=== PATIENT | female | born 1950 | race Caucasian/White ===

== ENCOUNTER 2017-08-14 18:38 | Emergency (ER) | payer MEDICARE, BC ==
[~2017-08-14] VITALS: Ht 172.7 cm; Wt 77.8 kg
[~2017-08-14 18:38] MED LIST: ASPI-1264 PO; ATE25T PO; BENA5TAB2 PO; CHOL500050 PO; CITA-278 PO; CLOP75TA35 PO; FENO160T13 PO; GABA-530 PO; INSU100V9 SQ; MAGN500C16 PO; NITR0.4T SL; OMEP20CA10 PO; SIMV20TA5 PO; VIT1CAPS4 PO
[2017-08-14 19:19] LABS: BASOPHILS % (AUTO) 0.1 % (0-1); EOSINOPHILS % (AUTO) 0 % (0-6); HEMATOCRIT 50.8 % (35.0-45.0); LYMPHOCYTES # (AUTO) 0.8 X10'3 (1.1-4.8); LYMPHOCYTES % (AUTO) 13.8 % (21-51); MEAN CORPUSCULAR HEMOGLOBIN 28.5 PG (27.0-31.0); MEAN CORPUSCULAR HGB CONC 33.5 % (33.0-36.5); MEAN CORPUSCULAR VOLUME 84.8 FL (78-98); MEAN PLATELET VOLUME 7.7 FL (7.4-10.4); MONOCYTES # (AUTO) 0.5 X10'3 (0-0.9); MONOCYTES % (AUTO) 9.5 % (2-12); NEUTROPHILS # (AUTO) 4.4 X10'3 (1.8-7.7); NEUTROPHILS % (AUTO) 76.6 % (42-75); PLATELET COUNT 305 X10'3 (140-440); RED BLOOD COUNT 5.98 X10'6 (4.20-5.60); RED CELL DISTRIBUTION WIDTH 14.8 % (11.5-14.5); WHITE BLOOD COUNT 5.7 X10'3 (4.5-11.0)
[2017-08-14 19:21] LABS: COLOR,URINE Yellow (Yellow); GLUCOSE, URINE Negative (Neg); KETONES,URINE Negative (Neg); LEUKOCYTE ESTERASE ,URINE Moderate (Neg); NITRITES, URINE Positive (Neg); OCCULT BLOOD,URINE Negative (Neg); PROTEIN,URINE 30 mg/dl (Neg)
[2017-08-14 19:30] LABS: UA COLLECTION TYPE CLN CATCH MIDSTREAM
[2017-08-14 19:31] LABS: PARTIAL THROMBOPLASTIN TIME 26 SECONDS (22-32)
[2017-08-14 19:31] LABS: BACTERIA,URINE 4+ /HPF (Neg); CLARITY,URINE SLIGHTLY CLOUDY (Clear); RBC,URINE 0-2 /HPF (0-2); RENAL CELLS, URINE FEW /HPF; SQUAMOUS EPITHELIAL CELL,UR FEW /LPF (FEW); WBC,URINE 20-30 /HPF (0-4)
[2017-08-14 19:35] LABS: ALANINE AMINOTRANSFERASE 29 U/L (12-78); ALBUMIN 3.9 G/DL (3.4-5.0); ALBUMIN/GLOBULIN RATIO 1.1 (1.1-1.5); ALKALINE PHOSPHATASE 67 IU/L (46-116); ANION GAP 13 (8-16); ASPARTATE AMINO TRANSFERASE 12 U/L (10-37); BLOOD UREA NITROGEN 30 MG/DL (7-18); BUN/CREATININE RATIO 17.1 (6.6-38.0); CALCIUM 9.6 MG/DL (8.5-10.1); CHLORIDE 102 MMOL/L (99-107); CREATININE 1.75 MG/DL (0.40-0.90); GLUCOSE 220 MG/DL (70-104); POTASSIUM 4.4 MMOL/L (3.5-5.1); SODIUM 141 MMOL/L (135-145); TOTAL CARBON DIOXIDE 25.8 MMOL/L (24-32); TOTAL PROTEIN 7.4 G/DL (6.4-8.2); eGFR 29 ML/MIN
[2017-08-14 19:40] LABS: MAGNESIUM 1.7 MG/DL (1.5-2.4)
[2017-08-14] MEDS ORDERED: normal saline 1000ml 1,000 ML IV ONE (19:54)
[2017-08-14] MEDS ORDERED: famotidine/PF 10 mg/ml inj IV ONE (19:55)
[2017-08-14] MEDS ORDERED: morphine 4 MG/ML inj SYRINge IV ONE (19:55)
[2017-08-14] MEDS ORDERED: normal saline 1000ML IV soln IVB ONE ×2 (19:55→20:45)
[2017-08-14] MEDS ORDERED: ondansetron/PF 4mg/2ml inj IV ONE (19:55)
[2017-08-14 20:12] LABS: LIPASE 113 U/L (73-393)
[2017-08-14] MEDS: metoprolol tartrate 1mg/ml inj IV SCH ×4 (20:15→20:45)
[2017-08-14] MEDS ORDERED: ONDA4TAB6 PO (22:29)
[2017-08-14] MEDS ORDERED: CEPH250T PO (22:29)
[2017-08-14] MEDS ORDERED: CefTRIAXone 2gm/D5W 50ml 50 ML IV ONE (22:30)
[2017-08-14] MEDS ORDERED: mag hydrox/Alum hydrox/simeth 30ml oral suspension PO ONE (22:35)
[2017-08-14] MEDS ORDERED: LIDOcaine Viscous 15ml cup PO ONE (22:35)
[2017-08-14 23:12] VITALS: BP 113/65
== END 2017-08-14 23:14 | disposition home or self-care (01) ==
LOC: ER 18:39
DX: N39.0 Urinary tract infection, site not specified (principal); N28.9 Disorder of kidney and ureter, unspecified; E11.9 Type 2 diabetes mellitus without complications; E86.0 Dehydration; I49.9 Cardiac arrhythmia, unspecified; E78.00 Pure hypercholesterolemia, unspecified; I25.10 Atherosclerotic heart disease of native coronary artery without angina pectoris; I10 Essential (primary) hypertension; K21.9 Gastro-esophageal reflux disease without esophagitis; G89.29 Other chronic pain; Z87.442 Personal history of urinary calculi; Z95.1 Presence of aortocoronary bypass graft; Z88.8 Allergy status to other drugs, medicaments and biological substances; Z79.4 Long term (current) use of insulin; Z79.82 Long term (current) use of aspirin; Z79.899 Other long term (current) drug therapy
CPT/HCPCS: 36415; 71045; 80053; 81001; 83690; 83735; 83880; 84484; 85025; 85610; 85730; 87077; 87088; 87186; 93005; 96361; 96365; 96375; 99285; J0696; J2270; J2405; J3490; J7030

== ENCOUNTER 2020-04-18 05:55 | Day surgery (SDC) | payer MEDICARE, BC ==
[2020-04-17 11:49] LABS: BASOPHILS % (AUTO) 0.6 % (0-1); EOSINOPHILS % (AUTO) 0 % (0-6); HEMATOCRIT 44.4 % (35.0-45.0); HEMOGLOBIN 14.6 g/dl (12.0-16.0); LYMPHOCYTES # (AUTO) 1.5 X10'3 (1.1-4.8); LYMPHOCYTES % (AUTO) 21.4 % (21-51); MEAN CORPUSCULAR HGB CONC 32.8 g/dL (33.0-36.5); MEAN CORPUSCULAR VOLUME 85.2 FL (78-98); MEAN PLATELET VOLUME 7.6 FL (7.4-10.4); MONOCYTES # (AUTO) 0.7 X10'3 (0-0.9); MONOCYTES % (AUTO) 9.6 % (2-12); NEUTROPHILS # (AUTO) 4.6 X10'3 (1.8-7.7); NEUTROPHILS % (AUTO) 68.4 % (42-75); PLATELET COUNT 316 X10'3 (140-440); RED BLOOD COUNT 5.21 X10'6 (4.20-5.60); RED CELL DISTRIBUTION WIDTH 15.5 % (11.5-14.5); WHITE BLOOD COUNT 6.8 X10'3 (4.5-11.0)
[2020-04-17 11:57] LABS: ALBUMIN 3.9 G/DL (3.4-5.0); ANION GAP 7 (8-16); BLOOD UREA NITROGEN 34 MG/DL (7-18); BUN/CREATININE RATIO 21.5 (6.6-38.0); CALCIUM 9.3 MG/DL (8.5-10.1); CHLORIDE 108 MMOL/L (99-107); CREATININE 1.58 MG/DL (0.40-0.90); GLUCOSE 85 MG/DL (70-104); POTASSIUM 4.5 MMOL/L (3.5-5.1); SODIUM 145 MMOL/L (135-145); TOTAL CARBON DIOXIDE 30.2 MMOL/L (24-32); eGFR 32 ML/MIN
[2020-04-17 12:02] LABS: PARTIAL THROMBOPLASTIN TIME 28 SECONDS (22-32)
[2020-04-18] VITALS (19 sets, daily range): BP systolic 119–173; BP diastolic 62–105
[~2020-04-18] VITALS: Ht 172.7 cm; Wt 77.1 kg
[~2020-04-18 05:55] MED LIST changes: +ASPI-1071 PO; -ASPI-1264 PO; +ATOR20TA66 PO; -BENA5TAB2 PO; -CITA-278 PO; +CITA20TA28 PO; +CLOP75TA34 PO; -CLOP75TA35 PO; +DEXL60CA3 PO; +DULA1.5P SQ; +FLAX100015 PO; -GABA-530 PO; +GLIP10TA11 PO; +HYDR12.55 PO; +INSU100I29 SQ; -INSU100V9 SQ; +LACT1CAP55 PO; +LISI10TA4 PO; -NITR0.4T SL; +NITR0.4T51 SL; -OMEP20CA10 PO; -SIMV20TA5 PO; -VIT1CAPS4 PO
[2020-04-18] MEDS ORDERED: LORazepam 0.5 MG tablet PO PRN (06:15)
[2020-04-18] MEDS ORDERED: diphenhydrAMINE 25mg capsule PO PRN (06:15)
[2020-04-18] MEDS ORDERED: ATOR10TA70 PO (06:53)
[2020-04-18] MEDS ORDERED: VITA15LO2 PO (06:53)
[2020-04-18] MEDS ORDERED: NITR0.4T51 SL (06:53)
[2020-04-18] MEDS ORDERED: ASPI-1265 PO (06:53)
--- NOTE | 2020-04-18 07:14 | NUR ---
pt states she took a Nitro sublingual early this a.m. or chest pain. denies chest pain now. states has subsided Addendum: 04/18/20 at 0716 by Arin Lizama RN Amended: Links added.
[2020-04-18] MEDS ORDERED: sodium bicarbonate (8.4%) inj. 150 ML in dextrose 5%-water 1,000 ML IV ONE (07:15)
[2020-04-18] MEDS: normal saline 1,000 ML IV SCH ×2 (07:26→16:15)
[2020-04-18] MEDS: acetylcysteine 200 MG/ml 4ml vial PO PRN ×3 (07:29→18:28)
[2020-04-18] MEDS ORDERED: heparin 1,000unit/ml 10ml vial 10 ML ONE (07:31)
[2020-04-18] MEDS ORDERED: LIDOcaine 1% (10mg/ml)w/preservative injection 20ml MDV ONE ×2 (07:31→13:39)
[2020-04-18] MEDS ORDERED: fentaNYL/PF 50MCG/1 ML 2ML syringe ONE (07:31)
[2020-04-18] MEDS ORDERED: nitroGLYCERIN-Tridil 50MG/D5W 250 ML IV ONE ×2 (07:31→09:10)
[2020-04-18] MEDS ORDERED: iohexol 350 MG/ML 50ML vial IV ONE ×2 (07:31→08:19)
[2020-04-18] MEDS ORDERED: iohexol 350MG/ML 100ml bottle IV ONE ×2 (07:31→08:38)
[2020-04-18] MEDS ORDERED: midazolam 2 mg/2 ml injection ONE ×2 (07:31→09:00)
[2020-04-18] MEDS ORDERED: nitroGLYCERIN 0.4mg SUBLingual tab SL ONE (08:00)
[2020-04-18] MEDS ORDERED: diltiazem 5mg/ml 5ml inj. IV ONE (08:34)
[2020-04-18] MEDS ORDERED: heparin 25,000 UNIT/250ml bag 250 ML IV ONE (08:38)
[2020-04-18] MEDS ORDERED: iohexol 350 MG/1 ML 200ml bottle ONE (08:56)
[2020-04-18] MEDS ORDERED: heparin 1,000 UNITS/NS 500ml 500 ML ONE (09:11)
[2020-04-18] MEDS ORDERED: HYDROmorphone 1 mg/ml syringe ONE (09:13)
[2020-04-18] MEDS ORDERED: clopidogrel 300mg tablet ONE (10:05)
[2020-04-18] MEDS ORDERED: aspirin 81mg tab.chew PO SCH (10:39)
[2020-04-18] MEDS ORDERED: acetaminophen 325mg tablet PO PRN ×2 (10:40)
[2020-04-18] MEDS ORDERED: cyclobenzaprine 10mg tablet PO PRN (10:40)
[2020-04-18] MEDS ORDERED: OXAZEpam 15mg capsule PO PRN (10:40)
[2020-04-18] MEDS ORDERED: HYDROcodone/acetaminophen 10/325mg tab PO PRN ×2 (10:40)
[2020-04-18] MEDS ORDERED: proCHLORperazine 10 MG/2 ml inj IV PRN (10:40)
[2020-04-18] MEDS ORDERED: magnesium hydroxide 30ml (MOM) UD suspension PO PRN (10:40)
[2020-04-18] MEDS: sodium bicarbonate (8.4%) inj. 150 MEQ in dextrose 5%-water 1,000 ML IV SCH ×2 (10:45→18:25)
[2020-04-18] MEDS ORDERED: LIDOcaine 1% (10mg/ml) 2ml vial ONE (13:57)
--- NOTE | 2020-04-18 14:20 | NUR ---
Received report from Kendra REID. Bernard REID from sugar laboratory assistant in to pull sheath and place angioseal. Patient tolerated well. Site CDI, no bleeding no hematoma following sheath removal.
--- NOTE | 2020-04-18 14:21 | NUR ---
LORENZO REID FROM LICENSED MORTICIAN HERE TO PULL SHEATH AND PLACE ANGIOSEAL. PT AND REPORT GIVEN TO SUBHA REID. PT INFORMED.
[2020-04-18] MEDS ORDERED: hydrALAZINE 20mg/ml inj. IV ONE ×2 (14:50→14:55)
--- NOTE | 2020-04-18 16:10 | NUR ---
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 Stat EKG performed. BP 122/81, Sats 96% RR 22, HR 110. Nitro SL given as ordered. Relief of chest pain with the Nitro SL. Patient stating that she is having some anxiety related to the chest pain. Will continue to monitor. Dr. Willard notified. No new orders received.
[2020-04-18] MEDS ORDERED: nitroGLYCERIN 0.4mg SUBLingual tab SL PRN (16:15)
--- NOTE | 2020-04-18 17:30 | NUR ---
Patient's right groin CDI, no hematoma or bleeding noted. Starting to slowly sit patient up. Will continue to monitor
--- NOTE | 2020-04-18 18:00 | NUR ---
Patient sitting up at 45 degrees. No hematoma or bleeding to right groin. Dressing CDI.
--- NOTE | 2020-04-18 18:20 | NUR ---
Patient got up to the bathroom. Dressing CDI, no hematoma or bleeding. Patient eating dinner.
--- NOTE | 2020-04-18 19:00 | NUR ---
Patient up and ambulating. Site CDI, no bleeding/hematoma. D/C'd PIV; dressed with 2x2's and coban. Reviewed discharge instructions with patient. Patient verbalized understanding. All questions answered. Patient taken out to 's car in w/c. All belongings with patient on d/c.
[2020-04-18] MEDS ORDERED: docusate sod 100mg capsule PO SCH (20:00)
[2020-04-19] MEDS ORDERED: clopidogrel 75mg tablet PO SCH (08:00)
== END 2020-04-18 19:00 | disposition home or self-care (01) ==
LOC: SSTAY O 05:55
PROVIDERS: ATTEND Internal Medicine Cardiovascular Disease
DX: R07.9 Chest pain, unspecified (principal); I25.810 Atherosclerosis of coronary artery bypass graft(s) without angina pectoris; I25.82 Chronic total occlusion of coronary artery; I25.10 Atherosclerotic heart disease of native coronary artery without angina pectoris; E11.9 Type 2 diabetes mellitus without complications; E78.5 Hyperlipidemia, unspecified; I10 Essential (primary) hypertension
CPT/HCPCS: 36415; 76937; 80048; 82948; 85025; 85347; 85610; 85730; 92920; 93005; 93459; C1725; C1751; C1769; C1874; C9600; C9601; J0360; J1170; J1644; J2001; J2250; J3010; J7030; Q9967; 99152; 99153; A4620; A6258; J3490

== ENCOUNTER 2022-08-25 15:43 | Emergency (ER) | payer MEDICARE, BC ==
[~2022-08-25] VITALS: Ht 162.6 cm; Wt 74.5 kg
[~2022-08-25 15:43] MED LIST changes: +ALBU8.5H17 INH; -ASPI-1071 PO; +ASPI-1265 PO; -ATE25T PO; +ATEN50TA8 PO; -ATOR20TA66 PO; +ATOR40TA72 PO; +AZIT500T9 PO; +CEFD300C3 PO; -CITA20TA28 PO; +CITA40TA22 PO; -DEXL60CA3 PO; -DULA1.5P SQ; -FLAX100015 PO; -GLIP10TA11 PO; +GLIP10TA21 PO; +ISOS30TA84 PO; +LACT1CAP26 PO; -LACT1CAP55 PO; +LISI10TA27 PO; -LISI10TA4 PO; -MAGN500C16 PO; +MAGN500C4 PO; -NITR0.4T51 SL; +SEMA0.25 SQ
[2022-08-25 16:00] VITALS: BP 105/67
[2022-08-25] MEDS ORDERED: HYDROcodone/acetaminophen 10/325mg tab PO ONE (16:00)
[2022-08-25] MEDS ORDERED: morphine 4 MG/ML inj SYRINge IM ONE (16:00)
[2022-08-25] MEDS ORDERED: HYDR-3973 PO (17:40)
== END 2022-08-25 18:04 | disposition home or self-care (01) ==
LOC: ER 15:43
DX: R07.81 Pleurodynia (principal); R55 Syncope and collapse; I11.9 Hypertensive heart disease without heart failure; E78.00 Pure hypercholesterolemia, unspecified; E11.9 Type 2 diabetes mellitus without complications; K21.9 Gastro-esophageal reflux disease without esophagitis; G89.29 Other chronic pain; M54.9 Dorsalgia, unspecified; Z88.8 Allergy status to other drugs, medicaments and biological substances; Z88.6 Allergy status to analgesic agent; Z79.899 Other long term (current) drug therapy; Z79.82 Long term (current) use of aspirin; W19.XXXA Unspecified fall, initial encounter; Y93.89 Activity, other specified; Y92.89 Other specified places as the place of occurrence of the external cause; Y99.8 Other external cause status
CPT/HCPCS: 71100; 93005; 96372; 99283; J2270

== ENCOUNTER 2022-08-27 08:00 | Emergency (ER) | payer MEDICARE, BC ==
[~2022-08-27] VITALS: Ht 172.7 cm; Wt 75.0 kg
[~2022-08-27 08:00] MED LIST changes: +HYDR-3973 PO
[2022-08-27 08:11] VITALS: BP 157/83
[2022-08-27] MEDS ORDERED: ONDA-104 PO (10:27)
[2022-08-27] MEDS ORDERED: proCHLORperazine 10 MG/2 ml inj IM ONE (10:40)
== END 2022-08-27 10:59 | disposition home or self-care (01) ==
LOC: ER 08:01
DX: S22.32XD Fracture of one rib, left side, subsequent encounter for fracture with routine healing (principal); R11.2 Nausea with vomiting, unspecified; T40.2X5A Adverse effect of other opioids, initial encounter; X58.XXXD Exposure to other specified factors, subsequent encounter; I10 Essential (primary) hypertension; E78.00 Pure hypercholesterolemia, unspecified; K21.9 Gastro-esophageal reflux disease without esophagitis; E11.9 Type 2 diabetes mellitus without complications; Z91.041 Radiographic dye allergy status; Z88.8 Allergy status to other drugs, medicaments and biological substances
CPT/HCPCS: 96372; 99283; J0780